=== PATIENT | male | born 1960 | race Caucasian/White ===

== ENCOUNTER 2019-08-22 14:42 | Emergency (ER) | payer BC ==
[2019-08-22] MEDS ORDERED: HYDROmorphone 1 MG/ML Syringe IM ONE (15:11)
--- NOTE | 2019-08-22 15:14 | EDM.PDOC ---
ED HPI GENERAL MEDICAL PROBLEM - General Chief Complaint: Back Pain or Injury Stated Complaint: POSSBILE BROKEN RIBS Time Seen by Provider: 08/22/19 15:00 Source of Information: Reports: Patient, Family History Limitations: Reports: No Limitations - History of Present Illness INITIAL COMMENTS - FREE TEXT/NARRATIVE: 59-year-old male slipped on the ice yesterday while shoveling snow landing flat on his back extremely hard. He felt a pop on the right posterior flank area and now today has significant pain especially with movement therapy. He is not short of breath. No cough. Onset: Sudden Duration: Hour(s): (Roughly 24 hours ago) Location: Reports: Chest (Right posterior chest) - Related Data Allergies Allergy/AdvReac Type Severity Reaction Status Date / Time Penicillins Allergy Hives Verified 08/22/19 14:59 Home Meds: Home Meds NK [No Known Home Meds] 08/22/19 [History] Past Medical History - Past Surgical History HEENT Surgical History: Reports: Tonsillectomy Musculoskeletal Surgical History: Reports: Other (See Below) Other Musculoskeletal Surgeries/Procedures:: FRANCY PONCE Social & Family History - Tobacco Use Smoking Status *Q: Never Smoker ED ROS GENERAL - Review of Systems Review Of Systems: See Below Constitutional: Denies: Fever, Chills Respiratory: Reports: Pleuritic Chest Pain. Denies: Shortness of Breath Cardiovascular: Reports: Chest Pain GI/Abdominal: Denies: Abdominal Pain, Nausea, Vomiting Skin: Reports: No Symptoms Neurological: Denies: Headache Psychiatric: Reports: No Symptoms ED EXAM, GENERAL - Physical Exam Exam: See Below Exam Limited By: No Limitations General Appearance: Alert, Mild Distress, Other (Very uncomfortable with certain ranges of motion) Head: Atraumatic Neck: Supple, Non-Tender Respiratory/Chest: No Respiratory Distress, Lungs Clear, Other (Right chest wall is extremely tender posteriorly to palpation with a small amount of crepitus) Cardiovascular: Regular Rate, Rhythm Neurological: Alert, Oriented Course - Vital Signs Last Recorded V/S: Last Vital Signs Temp 96.6 F 08/22/19 15:05 Pulse 75 08/22/19 15:05 Resp 16 08/22/19 15:05 BP 126/76 08/22/19 15:05 Pulse Ox 97 08/22/19 15:05 - Orders/Labs/Meds Meds: Medications Discontinued Medications Generic Name Dose Route Start Last Admin Trade Name Sonya PRN Reason Stop Dose Admin Hydromorphone HCl 1 mg 08/22/19 15:11 08/22/19 15:14 Dilaudid IM 08/22/19 15:12 1 mg ONETIME ONE Administration - Re-Assessments/Exams Free Text/Narrative Re-Assessment/Exam: 08/22/19 15:33 A 2 view chest x-ray confirmed at least 2 minimally displaced right posterior rib fractures. Underlying lung quintero are normal, no pneumothorax or effusion is present. Vitals are stable. The patient was supplied with two 6 inch Magdi wraps that he can use for chest support, given 20 Vicodin for extra pain control as he was responding fairly well to 1 mg of IM Dilaudid given prior to his x-ray. A copy of the x-ray was given to the patient so he can take it and to follow-up if he does not feel he is improving satisfactorily. Departure - Departure Time of Disposition: 15:49 Disposition: Home, Self-Care 01 Clinical Impression: Rib fractures Qualifiers: Encounter type: initial encounter Rib fracture type: multiple ribs Fracture type: closed Laterality: right Qualified Code(s): S22.41XA - Multiple fractures of ribs, right side, initial encounter for closed fracture - Discharge Information Instructions: Rib Fracture, [id number] Referrals: PCP,None [Primary Care Provider] - Forms: ED Department Discharge Care Plan Goals: A regular dose of anti-inflammatory such as ibuprofen or naproxen would be beneficial, icing sore areas for the next 2 days and increasing activity as tolerated. Wear wrap or belt for support while awake. Recheck in 4 to 5 days if not improving satisfactorily, or anytime sooner if worsening such as increased shortness of breath or cough. Sepsis Event Note - Evaluation Sepsis Screening Result: No Definite Risk - Focused Exam Vital Signs: Vital Signs Temp Pulse Resp BP Pulse Ox 08/22/19 15:05 96.6 F 75 16 126/76 97 08/22/19 14:58 96.6 F 75 16 126/76 97 Date Exam was Performed: 08/22/19 Time Exam was Performed: 16:08
--- NOTE | 2019-08-22 15:36 | CRLCR ---
Indication: Dyspnea. Technique: PA and lateral views the chest. Comparison: None Findings: The heart is normal in size. The lungs are clear. No infiltrate, pleural effusion, or pneumothorax is identified. Impression: No acute cardiopulmonary process Dictated by Karli Montenegro MD @ Aug 22 2019 3:34PM Signed by Dr. Karli Montenegro @ Aug 22 2019 3:35PM
== END 2019-08-22 15:49 | disposition home or self-care (01) ==
LOC: JP.ED 14:42 → EDBD 14:42 → JP.ED 15:49
DX: S22.41XA Multiple fractures of ribs, right side, initial encounter for closed fracture (principal); Z88.0 Allergy status to penicillin; W00.0XXA Fall on same level due to ice and snow, initial encounter; Y93.H1 Activity, digging, shoveling and raking
CPT/HCPCS: 71046; 96372; 99284-25; J1170